=== PATIENT | male | born 1995 | race Caucasian/White ===

== ENCOUNTER 2018-10-17 14:36 | Emergency (ER) | payer OTHER ==
[~2018-10-17] VITALS: Ht 175.3 cm; Wt 59.0 kg
[~2018-10-17 14:36] MED LIST: CELEXA10 MG PO; XANAX 0.5 MG0.5 MG PO
[2018-10-17 14:49] LABS: URINE BILIRUBIN NEGATIVE (Negative); URINE BLOOD NEGATIVE (Negative); URINE CLARITY CLEAR; URINE COLOR YELLOW; URINE GLUCOSE-RANDOM NEGATIVE (Negative); URINE KETONES NEGATIVE (Negative); URINE LEUKOCYTES-REFLEX NEGATIVE (Negative); URINE NITRITE-REFLEX NEGATIVE (Negative); URINE PROTEIN NEGATIVE (Negative); URINE SPECIFIC GRAVITY <= 1.005 (1.005-1.030); URINE UROBILINOGEN 0.2 E.U./dl (0.2-1.0)
[2018-10-17 14:58] LABS: AMP/METHAMP Negative (Negative); BARBITURATES Negative (Negative); BENZODIAZEPINES POSITIVE (Negative); COCAINE Negative (Negative); METHADONE Negative (Negative); OPIATES Negative (Negative); PCP Negative (Negative); THC Negative (Negative)
[2018-10-17 15:27] LABS: ABSOLUTE BASOPHILS 0.1 thou/uL (0.0-0.2); ABSOLUTE EOSINOPHILS 0.2 thou/uL (0.0-0.7); ABSOLUTE LYMPHOCYTES 2.6 thou/uL (0.8-5.3); ABSOLUTE MONOCYTES 0.5 thou/uL (0.0-1.2); BASOPHILS 1.4 %; EOSINOPHILS 3.8 %; HEMATOCRIT 41.2 % (42.0-52.0); HEMOGLOBIN 14.2 gm/dL (14.0-18.0); LYMPHOCYTES 49.3 %; MCH 33.6 pg (26.0-34.0); MCHC 34.5 g/dL (28.0-37.0); MCV 97.5 fL (80.0-100.0); MONOCYTES 8.7 %; MPV 7.5 fl. (7.2-11.1); NUCLEATED RBCS 0 /100WBC; PLATELET COUNT* 219 thou/uL (150-400); POLYS 36.8 %; RBC 4.22 mil/uL (4.50-6.00); RDW-CV 12.9 % (10.5-14.5); WBC 5.3 thou/uL (4.0-11.0)
[2018-10-17 15:31] LABS: CALCIUM 8.3 mg/dL (8.5-10.1); CREATININE 0.7 mg/dL (0.6-1.3); POTASSIUM 3.3 mmol/L (3.5-5.1)
[2018-10-17 15:35] LABS: ALBUMIN 3.9 g/dL (3.4-5.0); TOTAL BILIRUBIN 0.5 mg/dL (<0.1-1.0); TOTAL PROTEIN 7.5 g/dL (6.4-8.2)
[2018-10-17 15:45] LABS: ACETAMINOPHEN < 2 ug/mL (10-30)
[2018-10-17 15:47] LABS: ALCOHOL 466 mg/dL (<10)
[2018-10-18 01:45] VITALS: BP 111/78
== END 2018-10-18 01:45 | disposition home or self-care (01) ==
LOC: M.ERS 14:36
PROVIDERS: Family Medicine
DX: S00.83XA Contusion of other part of head, initial encounter (principal); S00.31XA Abrasion of nose, initial encounter; F10.129 Alcohol abuse with intoxication, unspecified; Y90.8 Blood alcohol level of 240 mg/100 ml or more; F41.9 Anxiety disorder, unspecified; F17.210 Nicotine dependence, cigarettes, uncomplicated; Z79.899 Other long term (current) drug therapy; W18.39XA Other fall on same level, initial encounter; Y93.89 Activity, other specified; Y92.89 Other specified places as the place of occurrence of the external cause; Y99.8 Other external cause status

== ENCOUNTER 2021-11-24 20:28 | Emergency (ER) | payer OTHER ==
[~2021-11-24] VITALS: Ht 185.4 cm; Wt 59.0 kg
[2021-11-24 20:42] VITALS: BP 145/80
== END 2021-11-24 21:58 | disposition left against medical advice (07) ==
LOC: M.ERS 20:28
DX: F41.9 Anxiety disorder, unspecified (principal); Z53.21 Procedure and treatment not carried out due to patient leaving prior to being seen by health care provider

== ENCOUNTER 2021-12-03 14:47 | Emergency (ER) | payer OTHER ==
[~2021-12-03] VITALS: Ht 180.3 cm; Wt 61.2 kg
[2021-12-03] MEDS ORDERED: ZOFRAN ODT4 MG DISSOLVE (15:18)
[2021-12-03] MEDS ORDERED: ATIVAN1 M1 PO (15:18)
[2021-12-03] MEDS ORDERED: QUETIAPINE FUM100 MG PO (15:18)
[2021-12-03 15:59] VITALS: BP 117/80
--- NOTE | 2021-12-04 10:05 | EKG ---
[place] [address] ELECTROCARDIOGRAM REPORT Name: DIANA JORGE Room: [facility]#: [id number] Admission: 12/03/21 Attend Phys: Discharge: 12/03/21 Date of : [birth year] Date of Service: 12/03/21 1514 Report #: [id number] THIS REPORT FOR: //name// [facility] ED Test Date: 2021-12-03 Test Time: 15:14:56 Pat Name: DIANA JORGE Department: Room: Gender: Internal Sales Engineer: MORGAN : 1995 Requested By: Eugene Lilly Order Number: [id number] MD: Elan Eaton Measurements Intervals [place] Rate: 66 P: 40 [place]: 114 QRS: 51 QRSD: 93 T: 34 QT: 401 QTc: 421 Interpretive Statements Sinus rhythm Borderline short [place] interval Compared to ECG 01/22/2017 14:43:49 Left ventricular hypertrophy no longer present Electronically Signed On 12-04-2021 10:05:41 [employer] by Elan Eaton [email or web address] <ELECTRONICALLY SIGNED> By: Elan Eaton MD, [facility] 12/04/21 1005 1514 1514 Elan Eaton MD, [facility] /EPI
== END 2021-12-03 16:00 | disposition home or self-care (01) ==
LOC: M.ERS 14:47
DX: F10.10 Alcohol abuse, uncomplicated (principal); Y90.9 Presence of alcohol in blood, level not specified; F41.9 Anxiety disorder, unspecified; F17.210 Nicotine dependence, cigarettes, uncomplicated